=== PATIENT | female | born 1965 | race Caucasian/White ===

== ENCOUNTER 2016-08-18 18:49 | Emergency (ER) | payer OTHER ==
[~2016-08-18] VITALS: Ht 157.5 cm; Wt 59.5 kg
[2016-08-18 18:56] VITALS: TEMP 36.6; Ht 157.5 cm; Wt 59.5 kg
--- NOTE | 2016-08-18 19:36 | DIAGNOSTIC IMAGING REPORT ---
SINGLE VIEW CHEST CLINICAL HISTORY: Generalized weakness. Change in mental status. FINDINGS: An AP, portable, upright chest radiograph is obtained. No prior studies are available for comparison at the time of dictation. The examination is degraded by portable technique and patient rotation. The heart is top normal for projection. The pulmonary vasculature is noncongested. Nonspecific interstitial thickening is noted. The lungs and pleural spaces are otherwise clear. No pneumothorax is seen. The bony thorax is grossly intact. IMPRESSION: No active disease in the chest. Electronically signed by: Mike Gutierrez M.D. 08/18/2016 7:35 PM Dictated Date/Time: 08/18/2016 7:34 PM
[2016-08-18 19:40] LABS: PARTIAL THROMBOPLASTIN RATIO 1.1; PROTHROMBIN TIME (PATIENT) 10.2 SECONDS (9.0-12.0)
[2016-08-18 19:41] LABS: ALT/SGPT 16 U/L (12-78); AST/SGOT 8 U/L (15-37); BLOOD UREA NITROGEN 9 mg/dl (7-18); BUN/CREATININE RATIO 11.3 (10-20); CALCIUM 8.5 mg/dl (8.5-10.1); CARBON DIOXIDE 25 mmol/L (21-32); CHLORIDE 109 mmol/L (98-107); CREATININE 0.83 mg/dl (0.60-1.20); GLUCOSE 92 mg/dl (70-99); MAGNESIUM 2.3 mg/dl (1.8-2.4); POTASSIUM 3.5 mmol/L (3.5-5.1); SODIUM 141 mmol/L (136-145)
--- NOTE | 2016-08-18 19:42 | DIAGNOSTIC IMAGING REPORT ---
CT SCAN OF THE BRAIN WITHOUT IV CONTRAST CLINICAL HISTORY: Change in mental status. COMPARISON STUDY: No priors. TECHNIQUE: Unenhanced axial CT scan of the brain is performed from the vertex to the skull base. Automated dose control exposure was utilized. CT DOSE: 537.48 mGy.cm FINDINGS: Brain parenchyma: The brain parenchyma is normal in appearance. There is no hemorrhage, mass effect, or evidence of acute territorial ischemia by CT criteria. Blum-white matter is preserved. No extra-axial fluid collection is seen. Ventricles, sulci, cisterns: Normal in configuration. Intracranial vasculature: The visualized intracranial vasculature at the skull base is normal in appearance. Calvarium: Unremarkable. Sinuses and mastoids: The visualized paranasal sinuses are clear. The mastoid air cells are well pneumatized. Orbits: The bony orbits are grossly intact. IMPRESSION: There is no hemorrhage, mass effect, or evidence of acute territorial ischemia by CT criteria. Electronically signed by: Mike Gutierrez M.D. 08/18/2016 7:40 PM Dictated Date/Time: 08/18/2016 7:38 PM
[2016-08-18 19:50] LABS: HEMATOCRIT 26.6 % (37-47); MEAN CELL VOLUME 62.3 fL (80-100); MEAN CORPUSCULAR HEMOGLOBIN 16.9 pg (25-34); MEAN CORPUSCULAR HGB CONC 27.1 g/dl (32-36); PLATELET COUNT 249 K/uL (130-400); RED BLOOD COUNT 4.27 M/uL (4.2-5.4); WHITE BLOOD COUNT 7.78 K/uL (4.8-10.8)
[2016-08-18 19:52] LABS: ALKALINE PHOSPHATASE 75 U/L (45-117); CKMB/CK RATIO 1.5 (0-3.0)
[2016-08-18 19:57] LABS: ANISOCYTOSIS PRESENT; BASO ABS # 0.08 K/uL (0-0.2); COMPLETE YES; EOS % 2.6 %; IG% 0.3 %; LYMPH % 34.2 %; LYMPH ABS # 2.66 K/uL (1.2-3.4); MICROCYTOSIS PRESENT; MONO % 9.9 %; OVALOCYTES 1+
[2016-08-18 21:14] LABS: ISTAT CREATININE 0.8 mg/dl (0.6-1.3); ISTAT HEMOGLOBIN 8.5 g/dl (12.0-16.0); ISTAT IONIZED CALCIUM 1.17 mmol/l (1.12-1.32)
[2016-08-18 22:27] LABS: HEMATOCRIT 25.4 % (37-47)
[2016-08-18] MEDS ORDERED: FERR1TAB13 PO (23:06)
--- NOTE | 2016-08-18 23:14 | EMERGENCY ROOM VISIT NOTE ---
History Report prepared by Ana Maria: Godfrey Umanzor Under the Supervision of: Dr. Huang Pope D.O. First contact with patient: 18:59 Chief Complaint: NEURO SYMPTOMS Stated Complaint: TINGLING IN HEAD & NUMBNESS IN R FOOT History of Present Illness The patient is a 50 year old female who presents to the Emergency Room with complaints of intermittent neuro symptoms for the past month. The patient states that she has been having some tingling in the back of her head, and some numbness in her right foot when she wakes up. The patient states that these episodes only last for around a minute. The patient states that she has a family history of heart attacks, and she is currently a smoker. Source of History: patient Onset: a month ago Position: head, foot (right) Quality: tingling, numbness Timing: intermittent Modifying Factors (Worsening): other (Crossing her legs) Review of Systems See HPI for pertinent positives & negatives. A total of 10 systems reviewed and were otherwise negative. Past Medical & Surgical Medical Problems: (1) No Known Active Medical Problems Surgical Problems: (1) H/O tubal ligation (2) Hx of tonsillectomy Family History FH: heart attack Social History Smoking Status: Current Every Day Smoker Marital Status: Housing Status: lives with family Current/Historical Medications Scheduled Ferrous Sulfate ( Ferrous Sulfate), 1 TAB PO DAILY Allergies Coded Allergies: No Known Allergies (Unverified , 08/18/16) Physical Exam Vital Signs Date Time Temp Pulse Resp B/P (MAP) Pulse Ox O2 Delivery O2 Flow Rate FiO2 08/18/16 22:20 86 20 141/84 100 Room Air 08/18/16 21:00 73 16 141/78 100 Room Air 08/18/16 20:31 72 18 137/81 100 Room Air 08/18/16 20:07 64 08/18/16 19:41 67 16 136/70 100 Room Air 08/18/16 18:56 36.6 79 18 155/78 100 Room Air Physical Exam VITAL SIGNS: were reviewed as above. GENERAL:Non-toxic in appearance. SKIN: Warm dry and pink. HEAD: Normocephalic and atraumatic. OROPHARYNX: Is clear and moist NECK: Supple without lymphadenopathy or meningismus. LUNGS: clear. HEART: Regular rate and rhythm. ABDOMEN: Soft and nontender. EXTREMITIES: Warm and well perfused. NEUROLOGICALLY: Awake alert and oriented without focal deficit. Cranial nerves 2 -12 are intact. There is no pronator drift. Cerebellar testing is within normal limits. There is no nystagmus. There is no facial droop. Speech is clear. Vision is grossly normal. MUSCULOSKELETAL: Good muscle tone. No evidence of trauma. Medical Decision & Procedures ER Provider Diagnostic Interpretation: Radiology results as stated below per my review and radiologist interpretation: CT SCAN OF THE BRAIN WITHOUT IV CONTRAST CLINICAL HISTORY: Change in mental status. COMPARISON STUDY: No priors. TECHNIQUE: Unenhanced axial CT scan of the brain is performed from the vertex to the skull base. Automated dose control exposure was utilized. CT DOSE: 537.48 mGy.cm FINDINGS: Brain parenchyma: The brain parenchyma is normal in appearance. There is no hemorrhage, mass effect, or evidence of acute territorial ischemia by CT criteria. Blum-white matter is preserved. No extra-axial fluid collection is seen. Ventricles, sulci, cisterns: Normal in configuration. Intracranial vasculature: The visualized intracranial vasculature at the skull base is normal in appearance. Calvarium: Unremarkable. Sinuses and mastoids: The visualized paranasal sinuses are clear. The mastoid air cells are well pneumatized. Orbits: The bony orbits are grossly intact. IMPRESSION: There is no hemorrhage, mass effect, or evidence of acute territorial ischemia by CT criteria. Electronically signed by: Mike Gutierrez M.D. 08/18/2016 7:40 PM Dictated Date/Time: 08/18/2016 7:38 PM SINGLE VIEW CHEST CLINICAL HISTORY: Generalized weakness. Change in mental status. FINDINGS: An AP, portable, upright chest radiograph is obtained. No prior studies are available for comparison at the time of dictation. The examination is degraded by portable technique and patient rotation. The heart is top normal for projection. The pulmonary vasculature is noncongested. Nonspecific interstitial thickening is noted. The lungs and pleural spaces are otherwise clear. No pneumothorax is seen. The bony thorax is grossly intact. IMPRESSION: No active disease in the chest. Electronically signed by: Mike Gutierrez M.D. 08/18/2016 7:35 PM Dictated Date/Time: 08/18/2016 7:34 PM Laboratory Results 08/18/16 19:15 Red Blood Count 4.27, Mean Corpuscular Volume 62.3, Mean Corpuscular Hemoglobin 16.9, Mean Corpuscular Hemoglobin Concent 27.1, Neutrophils (%) (Auto) 52.0, Lymphocytes (%) (Auto) 34.2, Monocytes (%) (Auto) 9.9, Eosinophils (%) (Auto) 2.6, Basophils (%) (Auto) 1.0, Neutrophils # (Auto) 4.05, Lymphocytes # (Auto) 2.66, Monocytes # (Auto) 0.77, Eosinophils # (Auto) 0.20, Basophils # (Auto) 0.08 08/18/16 21:25 08/18/16 19:15 Test 08/18/16 19:15 08/18/16 21:01 08/18/16 22:52 White Blood Count 7.78 K/uL (4.8-10.8) Red Blood Count 4.27 M/uL (4.2-5.4) Hemoglobin 7.2 g/dL (12.0-16.0) Hematocrit 26.6 % (37-47) Mean Corpuscular Volume 62.3 fL (80-100) Mean Corpuscular Hemoglobin 16.9 pg (25-34) Mean Corpuscular Hemoglobin Concent 27.1 g/dl (32-36) Platelet Count 249 K/uL (130-400) Neutrophils (%) (Auto) 52.0 % Lymphocytes (%) (Auto) 34.2 % Monocytes (%) (Auto) 9.9 % Eosinophils (%) (Auto) 2.6 % Basophils (%) (Auto) 1.0 % Neutrophils # (Auto) 4.05 K/uL (1.4-6.5) Lymphocytes # (Auto) 2.66 K/uL (1.2-3.4) Monocytes # (Auto) 0.77 K/uL (0.11-0.59) Eosinophils # (Auto) 0.20 K/uL (0-0.5) Basophils # (Auto) 0.08 K/uL (0-0.2) RDW Standard Deviation 44.5 fL (36.4-46.3) RDW Coefficient of Variation 19.5 % (11.5-14.5) Immature Granulocyte % (Auto) 0.3 % Immature Granulocyte # (Auto) 0.02 K/uL (0.00-0.02) Anisocytosis PRESENT Microcytosis PRESENT Ovalocytes 1+ Prothrombin Time 10.2 SECONDS (9.0-12.0) Prothromb Time International Ratio 1.0 (0.9-1.1) Activated Partial Thromboplast Time 27.5 SECONDS (21.0-31.0) Partial Thromboplastin Ratio 1.1 Est Creatinine Clear Calc Drug Dose 63.4 ml/min Estimated GFR () 94.6 Estimated GFR (Non- 81.6 BUN/Creatinine Ratio 11.3 (10-20) Calcium Level 8.5 mg/dl (8.5-10.1) Magnesium Level 2.3 mg/dl (1.8-2.4) Total Bilirubin 0.3 mg/dl (0.2-1) Direct Bilirubin < 0.1 mg/dl (0-0.2) Aspartate Amino Transf (AST/SGOT) 8 U/L (15-37) Alanine Aminotransferase (ALT/SGPT) 16 U/L (12-78) Alkaline Phosphatase 75 U/L (45-117) Total Creatine Kinase 96 U/L (26-192) Creatine Kinase MB 1.4 ng/ml (0.5-3.6) Creatine Kinase MB Ratio 1.5 (0-3.0) Troponin I < 0.015 ng/ml (0-0.045) Total Protein 7.2 gm/dl (6.4-8.2) Albumin 3.7 gm/dl (3.4-5.0) Thyroid Stimulating Hormone (TSH) 3.010 uIu/ml (0.300-4.500) Bedside Hemoglobin 8.5 g/dl (12.0-16.0) Bedside Hematocrit 25 % (37-47) Bedside Sodium 143 mEq/L (135-144) Bedside Potassium 4.0 mEq/L (3.3-5.0) Bedside Chloride 107 mEq/L (101-112) Bedside Total CO2 23 mEq/l (24-31) Anion Gap 18.0 mmol/L (16-25) Bedside Blood Urea Nitrogen 8 mg/dl (7-18) Bedside Creatinine 0.8 mg/dl (0.6-1.3) Bedside Glucose (other) 89 mg/dl (70-99) Bedside Ionized Calcium (Aaron) 1.17 mmol/l (1.12-1.32) Laboratory results as stated above per my review. ECG Indication: other (neuro symptoms) Rate (beats per minute): 72 Rhythm: normal sinus Findings: no ectopy, other (no injury) ED Course 1900: Previous medical records were reviewed. The patient was evaluated in room A10. A complete history and physical examination was performed. 2054: I reevaluated the patient, and she was resting comfortably. 2236: On reevaluation, the patient is feeling well. I discussed the results and findings with the patient. She verbalized agreement of the treatment plan. She was discharged home. Medical Decision Differential includes acute coronary syndrome, myocardial infarction, CVA, TIA, anemia, infection, pneumonia, UTI, pyelonephritis, poor nutrition, dehydration, electrolyte disturbance,hypoglycemia. Medication Reconciliation: I attest that I have personally reviewed the patient' s current medication list. Blood pressure Screening: Patient was found to have an elevated blood pressure and was referred to their primary doctor for recheck and further treatment. This is a 50-year-old female who presents to the ED with a chief complaint of tingling in the back of her head that has been intermittent and transient lasting only seconds for the past 4 months. She also states that 6 times in the past month she is awoken from sleep with some discomfort and tingling in her right leg and foot. She states that this resolves after moving her leg around little after she awakens. She was mostly concerned because her 54-year- old sister recently in her sleep and she was concerned about the symptoms. She is not having blood work done in the recent past. She denies any shortness of breath with exertion, weakness, fatigue, fevers, lightheadedness or other screening symptoms. She is a smoker. She was advised to stop smoking. Her physical exam was unremarkable. EKG shows a normal sinus rhythm. Hemoglobin is 7.2. White blood cell count is normal. Troponin is negative. Chest x-ray is negative. CT scan head was negative for acute disease. The patient's CBC is suggestive of an iron deficiency anemia. Patient states that her and daughter both receive B-12 shots and wanted this checked. This was added to her lab work as well as a ferritin, TIBC an iron level. Her sees Dr. Blum, kettle chipper. I did give the patient a referral to Dr. Blum. She was started on iron. Guaiac testing of her stool was guaiac negative light brown. She is asymptomatic with regards to her anemia. I feel this is chronic. She will be stable for discharge and outpatient follow-up was recommended. Impression Primary Impression: Microcytic anemia Scribe Attestation The scribe's documentation has been prepared under my direction and personally reviewed by me in its entirety. I confirm that the note above accurately reflects all work, treatment, procedures, and medical decision making performed by me. Departure Information Dispostion Home / Self-Care Prescriptions Ferrous Sulfate (KP FERROUS SULFATE) 325 Mg Tab 1 TAB PO DAILY for 30 Days, #30 TAB 3 Refills Prov: Huang Pope D.O. 08/18/16 Referrals Brain Tavares M.D. (PCP) Sharon Blum MD Forms HOME CARE DOCUMENTATION FORM, IMPORTANT VISIT INFORMATION, WORK / SCHOOL INSTRUCTIONS Patient Instructions Anemia Iron Deficiency , My [facility] Additional Instructions Your blood work shows that you are anemic. This is likely chronic. Your hemoglobin today is 7.0. Take iron supplements as prescribed. The iron will cause your stool to turn black. This is normal. Follow-up with Dr. Blum for further evaluation of your anemia. B-12 test, ferritin, iron test and TIBC tests are pending. She can follow up on these tests. Urine anemia appears to be related to iron deficiency. There was no blood in her stool today. Follow-up with your family doctor and Sharon Blum next week.
[2016-08-18 23:44] VITALS: BP 142/69; PULSE 67; O2SAT 99
[2016-08-19 00:11] LABS: FERRITIN 1.6 ng/ml (8.0-388.0); TOTAL IRON BINDING CAPACITY 401 mcg/dl (250-450)
== END 2016-08-18 23:44 | disposition home or self-care (01) ==
LOC: C.EDB 18:51 → C.EDA 23:44
DX: D50.9 Iron deficiency anemia, unspecified (principal); F17.200 Nicotine dependence, unspecified, uncomplicated; Z98.51 Tubal ligation status; Z90.89 Acquired absence of other organs; Z82.49 Family history of ischemic heart disease and other diseases of the circulatory system